=== PATIENT | female | born 1965 | race American Indian/Alaskan Native ===

== ENCOUNTER 2016-09-25 08:24 | Emergency (ER) | payer SELFPAY ==
[2016-09-25 08:49] VITALS: BP 159/73
[2016-09-25 09:06] LABS: Basophils % (Auto) 1.1 % (0.0-1.8); Eosinophils % (Auto) 1.1 % (0.0-4.3); Hemoglobin 12.8 gm/dl (10.1-14.3); Mean Corpuscular HGB Conc 34 % (30-34); Mean Corpuscular Hemoglobin 29 pg (28-32); Mean Corpuscular Volume 87 fl (79-97); Platelet Count 259 K/mm3 (140-440); Red Blood Count 4.37 M/mm3 (3.65-5.03); Red Cell Distribution Width 13.8 % (13.2-15.2); White Blood Count 8.6 K/mm3 (4.5-11.0)
--- NOTE | 2016-09-25 10:00 | XRay Report ---
ROUTINE CHEST, TWO VIEWS: SOB/chest pain PA and lateral views demonstrate the heart and mediastinal contour to be of normal size and shape. The lungs are clear and fully expanded and the soft tissues and bony structures are normal. IMPRESSION: Normal study.
[2016-09-25 10:30] LABS: Anion Gap 19 mmol/L; BUN/Creatinine Ratio 26.66; Blood Urea Nitrogen 16 mg/dL (7-17); Calcium 9.9 mg/dL (8.4-10.2); Carbon Dioxide 24 mmol/L (22-30); Chloride 103.9 mmol/L (98-107); Glucose 116 mg/dL (65-100); Potassium 4.8 mmol/L (3.6-5.0); Sodium 142 mmol/L (137-145)
== END 2016-09-25 08:48 | disposition left against medical advice (07) ==
LOC: ED 08:24
DX: R07.9 Chest pain, unspecified (principal); R51 Headache; Z53.21 Procedure and treatment not carried out due to patient leaving prior to being seen by health care provider
CPT/HCPCS: 36415; 71020; 80048; 84484; 85025; 93005; 93010

== ENCOUNTER 2017-02-09 14:36 | Emergency (ER) | payer SELFPAY ==
[2017-02-09 14:46] VITALS: BP 150/82
[2017-02-09] MEDS ORDERED: NACL 0.9% 1000 ML 1,000 ML IV ONE (17:05)
[2017-02-09] MEDS ORDERED: ZOFRAN IV ONE ×2 (17:06→18:51)
[2017-02-09] MEDS ORDERED: MORPHINE IV ONE (17:06)
--- NOTE | 2017-02-09 17:20 | Emergency Department Report ---
ED Fall HPI - General Chief Complaint: Extremity Injury, Lower Stated Complaint: FALL/ FOOR PAIN Time Seen by Provider: 02/09/17 16:56 Source: patient Mode of arrival: Ambulatory Limitations: No Limitations - History of Present Illness Initial Comments: PT states last night around 1800, she was at home and she was getting box out of trunk of car. PT states that after she removed the box, she could not see where she walking. PT states she stepped in two holes and she lost her balance and fell. PT denies cp, sob, or dizziness prior to onset of fall. PT states she laid on the ground for about 12 minutes before her neighbor came and helped her to her bed. PT states she has been laying in bed since the fall. PT states her daughter has even her Tylenol and Extra Strength Tylenol but no relief. PT states she tried crawling to the bathroom but could not due to ble pain and L shoulder pain. PT states she has been voiding in a cup while on bed. 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 denies: chest paint, shortness of breath, abdominal pain, lightheaded - Related Data Home Medications Medication Instructions Recorded Confirmed Last Taken Hydroxychloroquine [Plaquenil] 200 mg PO QDAY 02/21/14 05/18/14 01/02/16 Previous Rx's Medication Instructions Recorded Last Taken Type Ibuprofen [Motrin] 600 mg PO Q8H PRN #15 tablet 02/09/17 Unknown Rx methylPREDNISolone [Medrol] 4 mg PO DAILY #1 tab.ds.pk 02/09/17 Unknown Rx oxyCODONE /ACETAMINOPHEN [Percocet 1 tab PO Q6HR PRN #8 tablet 02/09/17 Unknown Rx 5/325] Allergies Allergy/AdvReac Type Severity Reaction Status Date / Time No Known Allergies Allergy Verified 01/10/14 20:27 ED Review of Systems ROS: Stated complaint: FALL/ FOOR PAIN Other details as noted in HPI Comment: All other systems reviewed and negative Constitutional: denies: fever Respiratory: denies: cough, shortness of breath Cardiovascular: denies: chest pain, syncope Gastrointestinal: denies: abdominal pain Musculoskeletal: as per HPI, back pain, joint swelling, arthralgia Neurological: headache, abnormal gait (due to ankle pain ) ED Past Medical Hx - Past Medical History Hx Hypertension: Yes Hx Arthritis: Yes (arms and shoulders) Additional medical history: LUPUS - Surgical History Hx Breast Surgery: Yes (abcess rt breast - surgically drained) - Social History Smoking Status: Never Smoker Substance Use Type: None - Medications Home Medications: Home Medications Medication Instructions Recorded Confirmed Last Taken Type Hydroxychloroquine [Plaquenil] 200 mg PO QDAY 02/21/14 05/18/14 01/02/16 History Ibuprofen [Motrin] 600 mg PO Q8H PRN #15 tablet 02/09/17 Unknown Rx methylPREDNISolone [Medrol] 4 mg PO DAILY #1 tab.ds.pk 02/09/17 Unknown Rx oxyCODONE /ACETAMINOPHEN [Percocet 1 tab PO Q6HR PRN #8 tablet 02/09/17 Unknown Rx 5/325] ED Physical Exam - General Limitations: Language Barrier General appearance: alert, in no apparent distress, obese - Head Head exam: Present: atraumatic, normocephalic, normal inspection - Eye Eye exam: Present: normal appearance, PERRL, EOMI. Absent: conjunctival injection, nystagmus - ENT ENT exam: Present: normal exam, mucous membranes moist, normal external ear exam - Neck Neck exam: Present: normal inspection, tenderness, other (+ midline post C- spine tenderness ) - Respiratory Respiratory exam: Present: normal lung sounds bilaterally. Absent: respiratory distress, wheezes, rales, rhonchi, chest wall tenderness, accessory muscle use, decreased breath sounds - Cardiovascular Cardiovascular Exam: Present: regular rate, normal rhythm, normal heart sounds - GI/Abdominal GI/Abdominal exam: Present: soft, normal bowel sounds. Absent: distended, tenderness, guarding, rebound - Extremities Exam Extremities exam: Present: tenderness, normal capillary refill, pedal edema (R ) . Absent: calf tenderness - Expanded Upper Extremity Exam Left General: Present: normal inspection Shoulder Exam: Present: normal inspection, tenderness. Absent: full ROM, swelling, abrasion, deformity, crepidus, dislocation, tenderness over AC joint Upper Arm exam: Present: normal inspection Elbow exam: Present: normal inspection, full ROM. Absent: tenderness Hand Wrist exam: Present: normal inspection, full ROM Right General: Present: normal inspection - Expanded Lower Extremity Exam Left Hip exam: Absent: tenderness Knee exam: Present: normal inspection. Absent: tenderness Lower Leg exam: Present: normal inspection. Absent: tenderness Ankle exam: Present: tenderness (lateral malleolus ), swelling (lateral malleoulus ). Absent: full ROM Foot/Toe exam: Present: normal inspection. Absent: tenderness, swelling, calcaneal tenderness, tenderness at base of 5th metatarsal Neuro vascular tendon exam: Present: no vascular compromise Right Hip exam: Absent: tenderness Knee exam: Present: normal inspection, full ROM. Absent: tenderness Lower Leg exam: Present: normal inspection Ankle exam: Present: tenderness, swelling (lateral malleoulos ). Absent: normal inspection, full ROM Foot/Toe exam: Present: tenderness, swelling, tenderness at base of 5th metatarsal. Absent: full ROM, deformity Neuro vascular tendon exam: Present: no vascular compromise. Absent: pulse deficit Gait: Positive: unable to bear weight - Back Exam Back exam: Present: normal inspection, full ROM, tenderness, muscle spasm, paraspinal tenderness (R lumbar ). Absent: CVA tenderness (R), CVA tenderness ( L), vertebral tenderness - Neurological Exam Neurological exam: Present: alert, oriented X3 - Expanded Neurological Exam Expanded Patient oriented to: Present: person, place, time Speech: Present: fluid speech Best Eye Response ([place]): (4) open spontaneously Best Motor Response ([place]): (6) obeys commands Best Verbal Response ([place]): (5) oriented [place] Total: 15 - Psychiatric Psychiatric exam: Present: normal affect, normal mood - Skin Skin exam: Present: warm, dry, intact ED Course Vital Signs 02/09/17 14:44 Temperature 98.3 F Pulse Rate 95 H Respiratory 16 Rate Blood Pressure 150/82 O2 Sat by Pulse 98 Oximetry - Reevaluation(s) Reevaluation #1: 02/09/17 17:31 PT aware of plan of care. 02/09/17 19:35 Dr Szymanski aware of pt, reviewed available labs and imaging studies. Reevaluation #2: 02/09/17 19:50 PT placed in R post op shoe and yoshi wrap, L arm sling, L velcro ankle splint. PT able to bear wt. PT again aware no fx seen. PT aware her pain should gradually decrease. - Pulse Oximetry Interpretation Digit-Finger Initial Pulse Oximetry Readin Actions Taken: none ED Medical Decision Making - Lab Data Result diagrams: 02/09/17 17:57 02/09/17 17:57 Lab Results 02/09/17 02/09/17 02/09/17 Range/Units 17:57 17:57 17:57 WBC 10.5 (4.5-11.0) K/mm3 RBC 4.02 (3.65-5.03) M/mm3 Hgb 12.0 (10.1-14.3) gm/dl Hct 35.4 (30.3-42.9) % MCV 88 (79-97) fl MCH 30 (28-32) pg MCHC 34 (30-34) % RDW 13.6 (13.2-15.2) % Plt Count 246 (140-440) K/mm3 Lymph % (Auto) 32.5 (13.4-35.0) % [place] % (Auto) 7.7 H (0.0-7.3) % Eos % (Auto) 1.7 (0.0-4.3) % Baso % (Auto) 0.7 (0.0-1.8) % Lymph # 3.4 (1.2-5.4) K/mm3 [place] # 0.8 (0.0-0.8) K/mm3 Eos # 0.2 (0.0-0.4) K/mm3 Baso # 0.1 (0.0-0.1) K/mm3 Seg Neutrophils % 57.4 (40.0-70.0) % Seg Neutrophils # 6.0 (1.8-7.7) K/mm3 Sodium 142 (137-145) mmol/L Potassium 4.5 (3.6-5.0) mmol/L Chloride 103.5 (98-107) mmol/L Carbon Dioxide 26 (22-30) mmol/L Anion Gap 17 mmol/L BUN 17 (7-17) mg/dL Creatinine 0.7 (0.7-1.2) mg/dL Estimated GFR > 60 ml/min BUN/Creatinine Ratio 24.28 % Glucose 103 H (65-100) mg/dL Calcium 9.2 (8.4-10.2) mg/dL Total Bilirubin 0.20 (0.1-1.2) mg/dL AST 17 (5-40) units/L ALT 19 (7-56) units/L Alkaline Phosphatase 62 (35-129) units/L Total Creatine Kinase 248 H (30-135) units/L Total Protein 6.7 (6.3-8.2) g/dL Albumin 4.3 (3.9-5) g/dL Albumin/Globulin Ratio 1.8 % Urine Color (Yellow) Urine Turbidity (Clear) Urine pH (5.0-7.0) Ur Specific [place] (1.003-1.030) Urine Protein (Negative) mg/dL Urine Glucose (UA) (Negative) mg/dL Urine Ketones (Negative) mg/dL Urine Blood (Negative) Urine Nitrite (Negative) Urine Bilirubin (Negative) Urine Urobilinogen (<2.0) mg/dL Ur Leukocyte Esterase (Negative) Urine WBC (Auto) (0.0-6.0) /HPF Urine RBC (Auto) (0.0-6.0) /HPF U Epithel Cells (Auto) (0-13.0) /HPF Urine Mucus /HPF 02/09/17 Range/Units Unknown WBC (4.5-11.0) K/mm3 RBC (3.65-5.03) M/mm3 Hgb (10.1-14.3) gm/dl Hct (30.3-42.9) % MCV (79-97) fl MCH (28-32) pg MCHC (30-34) % RDW (13.2-15.2) % Plt Count (140-440) K/mm3 Lymph % (Auto) (13.4-35.0) % [place] % (Auto) (0.0-7.3) % Eos % (Auto) (0.0-4.3) % Baso % (Auto) (0.0-1.8) % Lymph # (1.2-5.4) K/mm3 [place] # (0.0-0.8) K/mm3 Eos # (0.0-0.4) K/mm3 Baso # (0.0-0.1) K/mm3 Seg Neutrophils % (40.0-70.0) % Seg Neutrophils # (1.8-7.7) K/mm3 Sodium (137-145) mmol/L Potassium (3.6-5.0) mmol/L Chloride (98-107) mmol/L Carbon Dioxide (22-30) mmol/L Anion Gap mmol/L BUN (7-17) mg/dL Creatinine (0.7-1.2) mg/dL Estimated GFR ml/min BUN/Creatinine Ratio % Glucose (65-100) mg/dL Calcium (8.4-10.2) mg/dL Total Bilirubin (0.1-1.2) mg/dL AST (5-40) units/L ALT (7-56) units/L Alkaline Phosphatase (35-129) units/L Total Creatine Kinase (30-135) units/L Total Protein (6.3-8.2) g/dL Albumin (3.9-5) g/dL Albumin/Globulin Ratio % Urine Color Yellow (Yellow) Urine Turbidity Clear (Clear) Urine pH 5.0 (5.0-7.0) Ur Specific [place] 1.024 (1.003-1.030) Urine Protein <15 mg/dl (Negative) mg/dL Urine Glucose (UA) Neg (Negative) mg/dL Urine Ketones Neg (Negative) mg/dL Urine Blood Neg (Negative) Urine Nitrite Neg (Negative) Urine Bilirubin Neg (Negative) Urine Urobilinogen < 2.0 (<2.0) mg/dL Ur Leukocyte Esterase Tr (Negative) Urine WBC (Auto) 7.0 H (0.0-6.0) /HPF Urine RBC (Auto) 5.0 (0.0-6.0) /HPF U Epithel Cells (Auto) 13.0 (0-13.0) /HPF Urine Mucus 1+ /HPF - Radiology Data Radiology results: report reviewed CT Cervical spine - nap XR ankles - NAP XR r foot NAP XR L shoulder NAP - Differential Diagnosis fracture, contusion, strain, rhabdo Critical Care Time: No Critical care attestation.: If time is entered above; I have spent that time in minutes in the direct care of this critically ill patient, excluding procedure time. ED Disposition Clinical Impression: Right foot pain Lupus Qualifiers: Systemic lupus erythematosus type: unspecified Systemic lupus erythematosus organ involvement: unspecified Qualified Code(s): M32.9 - Systemic lupus erythematosus, unspecified Fall Qualifiers: Encounter type: initial encounter Qualified Code(s): W19.XXXA - Unspecified fall, initial encounter Left shoulder pain Qualifiers: Chronicity: acute Qualified Code(s): M25.512 - Pain in left shoulder Bilateral ankle pain Qualifiers: Chronicity: acute Qualified Code(s): M25.571 - Pain in right ankle and joints of right foot Disposition: TO HOME OR SELFCARE Is pt being admited?: No Does the pt Need Aspirin: No Condition: Stable Instructions: Ankle Sprain (ED), Fall Prevention for Older Adults (ED), Shoulder Sprain (ED), Ankle Stirrup Splint (ED), Foot Sprain (ED), Arthralgia ( ED), Fall Prevention (ED) Additional Instructions: No driving or alcohol after taking Percocet Follow up with PCP in 3-5 days Do not wear your sling longer than 1 week IF you are still having pain 7-10 days after your injury, you may need repeat images (XRs) - your PCP can order this or you can follow up with [facility]TH[facility] Prescriptions: Ibuprofen [Motrin] 600 mg PO Q8H PRN #15 tablet PRN Reason: Pain methylPREDNISolone [Medrol] 4 mg PO DAILY #1 tab.ds.pk oxyCODONE /ACETAMINOPHEN [Percocet 5/325] 1 tab PO Q6HR PRN #8 tablet PRN Reason: Pain Referrals: PRIMARY CAREMD [Primary Care Provider] - 3-5 Days ROBINSON FOLEY MD [Staff Physician] - 3-5 Days [facility] [Outside] - 3-5 Days Forms: Work/School Release Form(ED) Time of Disposition: 20:04
--- NOTE | 2017-02-09 18:07 | Cat Scan Report ---
FINAL REPORT PROCEDURE: CT cervical spine without contrast. TECHNIQUE: Computerized tomography of the cervical spine was performed from the skull base to T1 without contrast material. HISTORY: Neck pain after falling. COMPARISON: No prior studies are available for comparison. FINDINGS: The cervical vertebrae have normal height and satisfactory alignment. There are no fractures. There is no subluxation. There is mild disc space narrowing at C5-6. There are small vertebral body osteophytes at this level. The spinal canal is widely patent. The facet joints appear satisfactory. The neural foramina are widely patent. The prevertebral soft tissues have normal thickness. IMPRESSION: No evidence of acute cervical spine injury. Mild degenerative disease as described.
[2017-02-09 18:12] LABS: Basophils % (Auto) 0.7 % (0.0-1.8); Eosinophils % (Auto) 1.7 % (0.0-4.3); Hematocrit 35.4 % (30.3-42.9); Mean Corpuscular HGB Conc 34 % (30-34); Mean Corpuscular Hemoglobin 30 pg (28-32); Mean Corpuscular Volume 88 fl (79-97); Platelet Count 246 K/mm3 (140-440); Red Blood Count 4.02 M/mm3 (3.65-5.03); Red Cell Distribution Width 13.6 % (13.2-15.2); White Blood Count 10.5 K/mm3 (4.5-11.0)
--- NOTE | 2017-02-09 18:13 | XRay Report ---
FINAL REPORT PROCEDURE: Left shoulder. TECHNIQUE: Three views. HISTORY: Shoulder pain after falling. COMPARISON: No prior studies are available for comparison. FINDINGS: The bones appear intact without fracture or dislocation. The joint spaces appear normal. The soft tissues are unremarkable. IMPRESSION: Normal study.
[2017-02-09 18:31] LABS: Alanine Aminotransferase 19 units/L (7-56); Albumin 4.3 g/dL (3.9-5); Albumin/Globulin Ratio 1.8 %; Alkaline Phosphatase 62 units/L (35-129); Anion Gap 17 mmol/L; BUN/Creatinine Ratio 24.28; Blood Urea Nitrogen 17 mg/dL (7-17); Calcium 9.2 mg/dL (8.4-10.2); Carbon Dioxide 26 mmol/L (22-30); Chloride 103.5 mmol/L (98-107); Glucose 103 mg/dL (65-100); Potassium 4.5 mmol/L (3.6-5.0); Sodium 142 mmol/L (137-145); Total Protein 6.7 g/dL (6.3-8.2)
--- NOTE | 2017-02-09 18:46 | XRay Report ---
FINAL REPORT EXAM: XR FOOT 3+V RT HISTORY: pain sp fall TECHNIQUE: Four views right foot PRIORS: None. FINDINGS: No fracture or dislocation identified. Joint spaces are within normal limits. No radiopaque foreign body seen. No soft tissue abnormality identified. IMPRESSION: Negative foot series
--- NOTE | 2017-02-09 18:47 | XRay Report ---
FINAL REPORT EXAM: XR ANKLE BILAT 3+V HISTORY: pain sp fall TECHNIQUE: Bilateral ankles three views left and three views right PRIORS: None. FINDINGS: No fracture is identified. No dislocation seen. Ankle mortise is intact no evidence of joint space widening. No erosive or degenerative changes are identified. No evidence of joint effusion. IMPRESSION: Negative ankle series
[2017-02-09] MEDS ORDERED: TORADOL IV ONE (19:24)
[2017-02-09 19:51] LABS: Bilirubin,Urine NEG (Negative); Blood,Urine NEG (Negative); Ketones,Urine NEG (Negative); Leukocyte Esterase,Urine TR (Negative); Mucus,Urine 1+ /HPF; Nitrite,Urine NEG (Negative); Protein,Urine <15 mg/dL mg/dL (Negative); Urobilinogen,Urine < 2.0 mg/dL (<2.0)
[2017-02-09] MEDS ORDERED: DILAUDID IV ONE (20:01)
== END 2017-02-09 20:37 | disposition home or self-care (01) ==
LOC: ED 14:36
DX: M25.572 Pain in left ankle and joints of left foot (principal); M25.571 Pain in right ankle and joints of right foot; M32.9 Systemic lupus erythematosus, unspecified; M25.512 Pain in left shoulder; I10 Essential (primary) hypertension; M19.90 Unspecified osteoarthritis, unspecified site
CPT/HCPCS: 29515; 36415; 72125; 73030; 73610; 73630; 80053; 81001; 82550; 85025; 96361; 96372; 96374; 96375; 96376; 99285; J1170; J1885; J2270; J2405; J2930; J7030; 99284

== ENCOUNTER 2017-09-11 10:08 | Outpatient (CLI) | payer OTHER ==
--- NOTE | 2017-09-11 23:40 | XRay Report ---
FINAL REPORT PROCEDURE: Right hip. TECHNIQUE: AP pelvis, frogleg lateral view of the right hip. HISTORY: RHEUMATOID ARTHRITIS COMPARISON: No prior studies are available for comparison. FINDINGS: The pelvis appears intact. There is an IUD device in the pelvis. Both hip joints appear normal. There are no hip fractures. The soft tissues are unremarkable. IMPRESSION: Normal study.
== END 2017-09-11 10:09 | disposition home or self-care (01) ==
LOC: XRAY 10:08
PROVIDERS: ATTEND Internal Medicine
DX: M06.9 Rheumatoid arthritis, unspecified (principal); I10 Essential (primary) hypertension; Z97.5 Presence of (intrauterine) contraceptive device

== ENCOUNTER 2019-02-15 16:13 | Emergency (ER) | payer SELFPAY ==
[2019-02-15] MEDS ORDERED: ASPIRIN 325 MG TAB PO ONE (16:39)
--- NOTE | 2019-02-15 16:42 | Event Note ---
ED Screening Note Date of service: 02/15/19 Time: 16:37 ED Screening Note: This is a 53 y.o. F. that presents to the ER with generalized pain and chest pain since this morning. PMH of HTN, arthritis, and lupus This initial assessment/diagnostic orders/clinical plan/treatment(s) is/are subject to change based on patients health status, clinical progression and re- assessment by fellow clinical providers in the ED. Further treatment and workup at subsequent clinical providers discretion. Patient/guardian urged not to elope from the ED as their condition may be serious if not clinically assessed and managed. Initial orders include: Labs, CXR, and EKG
[2019-02-15 17:07] LABS: Basophils # (Auto) 0.1 K/mm3 (0.0-0.1); Basophils % (Auto) 1.6 % (0.0-1.8); Eosinophils # (Auto) 0.2 K/mm3 (0.0-0.4); Hematocrit 36.9 % (30.3-42.9); Hemoglobin 12.4 gm/dl (10.1-14.3); Lymphocytes # (Auto) 3.7 K/mm3 (1.2-5.4); Lymphocytes % (Auto) 45.4 % (13.4-35.0); Mean Corpuscular HGB Conc 34 % (30-34); Mean Corpuscular Volume 89 fl (79-97); Monocytes # (Auto) 0.4 K/mm3 (0.0-0.8); Monocytes % (Auto) 5.5 % (0.0-7.3); Platelet Count 290 K/mm3 (140-440); Red Blood Count 4.15 M/mm3 (3.65-5.03); Red Cell Distribution Width 13.5 % (13.2-15.2)
[2019-02-15 17:28] LABS: BUN/Creatinine Ratio 27; Blood Urea Nitrogen 19 mg/dL (7-17); Calcium 9.1 mg/dL (8.4-10.2); Hemolysis Index 4
--- NOTE | 2019-02-15 17:38 | XRay Report ---
CHEST 1 VIEW INDICATION: Chest Pain. COMPARISON: Chest x-ray from 09/25/2016 FINDINGS: Support devices: None. Heart: Within normal limits. Lungs/Pleura: Minimal streaky left basilar atelectasis with otherwise clear lungs. Additional findings: None. IMPRESSION: 1. No acute findings. Signer Name: Daryl Carranza MD Signed: 02/15/2019 5:34 PM Workstation Name: [id number]
[2019-02-15] MEDS ORDERED: ONDANSETRON 4 MG/2 ML INJ IV ONE (20:05)
[2019-02-15] MEDS ORDERED: SODIUM CHLORIDE 0.9% 1000 ML 1,000 ML IV ONE (20:05)
[2019-02-15] MEDS ORDERED: dexAMETHasone 20 MG/5 ML VIAL IV ONE (20:05)
[2019-02-15] MEDS ORDERED: MORPHINE 4 MG/1 ML INJ IV ONE (20:05)
--- NOTE | 2019-02-15 21:21 | Emergency Department Report ---
ED General Adult HPI - General Chief complaint: Chest Pain Stated complaint: CHEST PAIN/BACK PAIN Time Seen by Provider: 02/15/19 16:36 Source: patient Mode of arrival: Ambulatory Limitations: No Limitations - History of Present Illness Initial comments: Patient is a 53-year-old female with past history of lupus who is complaining of one day of body aches. Patient states she has some midsternal chest pain. Patient with bilateral shoulder and knee pain. Patient states pains are achy and 1010 in severity. Worse with movement better with rest. 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 Patient does have chronic back pain. Patient states she has a mild cough is nonproductive and she denies any nausea vomiting diarrhea fevers or chills. - Related Data Home Medications Medication Instructions Recorded Confirmed Last Taken Hydroxychloroquine [Plaquenil] 200 mg PO QDAY 02/21/14 05/18/14 01/02/16 Previous Rx's Medication Instructions Recorded Last Taken Type Ibuprofen [Motrin] 600 mg PO Q8H PRN #15 tablet 02/09/17 Unknown Rx methylPREDNISolone [Medrol] 4 mg PO DAILY #1 tab.ds.pk 02/09/17 Unknown Rx oxyCODONE /ACETAMINOPHEN [Percocet 1 tab PO Q6HR PRN #8 tablet 02/09/17 Unknown Rx 5/325] methOCARBAMOL [Robaxin TAB] 500 mg PO Q6H PRN #14 tablet 02/15/19 Unknown Rx predniSONE [Deltasone] 20 mg PO QDAY #5 tab 02/15/19 Unknown Rx traMADol [Ultram] 50 mg PO Q6HR PRN #12 tablet 02/15/19 Unknown Rx Allergies Allergy/AdvReac Type Severity Reaction Status Date / Time No Known Allergies Allergy Verified 01/10/14 20:27 ED Review of Systems ROS: Stated complaint: CHEST PAIN/BACK PAIN Other details as noted in HPI Comment: All other systems reviewed and negative ED Past Medical Hx - Past Medical History Previous Medical History?: Yes Hx Hypertension: Yes Hx Arthritis: Yes (arms and shoulders) Additional medical history: LUPUS - Surgical History Past Surgical History?: Yes Hx Breast Surgery: Yes (abcess rt breast - surgically drained) - Social History Smoking Status: Unknown if ever smoked Substance Use Type: None - Medications Home Medications: Home Medications Medication Instructions Recorded Confirmed Last Taken Type Hydroxychloroquine [Plaquenil] 200 mg PO QDAY 02/21/14 05/18/14 01/02/16 History Ibuprofen [Motrin] 600 mg PO Q8H PRN #15 tablet 02/09/17 Unknown Rx methylPREDNISolone [Medrol] 4 mg PO DAILY #1 tab.ds.pk 02/09/17 Unknown Rx oxyCODONE /ACETAMINOPHEN [Percocet 1 tab PO Q6HR PRN #8 tablet 02/09/17 Unknown Rx 5/325] methOCARBAMOL [Robaxin TAB] 500 mg PO Q6H PRN #14 tablet 02/15/19 Unknown Rx predniSONE [Deltasone] 20 mg PO QDAY #5 tab 02/15/19 Unknown Rx traMADol [Ultram] 50 mg PO Q6HR PRN #12 tablet 02/15/19 Unknown Rx ED Physical Exam - General Limitations: No Limitations General appearance: alert, in no apparent distress - Head Head exam: Present: atraumatic, normocephalic - Eye Eye exam: Present: normal appearance - ENT ENT exam: Present: normal orophraynx, mucous membranes moist - Neck Neck exam: Present: normal inspection - Respiratory Respiratory exam: Present: normal lung sounds bilaterally. Absent: respiratory distress, wheezes, rales, rhonchi - Cardiovascular Cardiovascular Exam: Present: regular rate, normal rhythm, normal heart sounds. Absent: systolic murmur, diastolic murmur, rubs, gallop - GI/Abdominal GI/Abdominal exam: Present: soft, normal bowel sounds. Absent: distended, tenderness, guarding, rebound, rigid - Extremities Exam Extremities exam: Present: normal inspection, full ROM, tenderness (tenderness without skin erythema or deformity of the bilateral shoulders and bilateral knees.) - Back Exam Back exam: Present: normal inspection, paraspinal tenderness - Neurological Exam Neurological exam: Present: alert, oriented X3 - Psychiatric Psychiatric exam: Present: normal affect, normal mood - Skin Skin exam: Present: warm, dry, intact, normal color. Absent: rash ED Course Vital Signs 02/15/19 16:38 Temperature 98.8 F Pulse Rate 95 H Respiratory 20 Rate Blood Pressure 127/71 O2 Sat by Pulse 98 Oximetry ED Medical Decision Making - Lab Data Result diagrams: 02/15/19 16:53 02/15/19 16:53 Lab Results 02/15/19 02/15/19 02/15/19 Range/Units 16:53 16:53 19:20 WBC 8.1 (4.5-11.0) K/mm3 RBC 4.15 (3.65-5.03) M/mm3 Hgb 12.4 (10.1-14.3) gm/dl Hct 36.9 (30.3-42.9) % MCV 89 (79-97) fl MCH 30 (28-32) pg MCHC 34 (30-34) % RDW 13.5 (13.2-15.2) % Plt Count 290 (140-440) K/mm3 Lymph % (Auto) 45.4 H (13.4-35.0) % [place] % (Auto) 5.5 (0.0-7.3) % Eos % (Auto) 2.0 (0.0-4.3) % Baso % (Auto) 1.6 (0.0-1.8) % Lymph # 3.7 (1.2-5.4) K/mm3 [place] # 0.4 (0.0-0.8) K/mm3 Eos # 0.2 (0.0-0.4) K/mm3 Baso # 0.1 (0.0-0.1) K/mm3 Seg Neutrophils % 45.5 (40.0-70.0) % Seg Neutrophils # 3.7 (1.8-7.7) K/mm3 Sodium 140 (137-145) mmol/L Potassium 4.0 (3.6-5.0) mmol/L Chloride 103.8 (98-107) mmol/L Carbon Dioxide 22 (22-30) mmol/L Anion Gap 18 mmol/L BUN 19 H (7-17) mg/dL Creatinine 0.7 (0.7-1.2) mg/dL Estimated GFR > 60 ml/min BUN/Creatinine Ratio 27 % Glucose 135 H (65-100) mg/dL Calcium 9.1 (8.4-10.2) mg/dL Troponin T < 0.010 < 0.010 (0.00-0.029) ng/mL - EKG Data -: EKG Interpreted by Ut EKG shows normal: sinus rhythm, axis, intervals, QRS complexes, ST-T waves Rate: normal - EKG Data Interpretation: normal EKG - Radiology Data [facility] [address] [place] [address] XRay Report Signed Patient: MEHREEN HALL MR#: [id number] : 1965 Acct:[id number] Age/Sex: 53 / F ADM Date: 02/15/19 Loc: ED Attending Dr: Ordering Physician: JOCELYN MOODY Date of Service: 02/15/19 Procedure(s): XR chest 1V ap Accession Number(s): [id number] cc: JOCELYN MOODY Fluoro Time In Minutes: CHEST 1 VIEW INDICATION: Chest Pain. COMPARISON: Chest x-ray from 09/25/2016 FINDINGS: Support devices: None. Heart: Within normal limits. Lungs/Pleura: Minimal streaky left basilar atelectasis with otherwise clear lungs. Additional findings: None. IMPRESSION: 1. No acute findings. Signer Name: Daryl Carranza MD Signed: 02/15/2019 5:34 PM Workstation Name: [id number] Transcribed By: JW Dictated By: Daryl Carranza MD Electronically Authenticated By: Daryl Carranza MD Signed Date/Time: 02/15/19 1734 - Medical Decision Making He is a 53-year-old female presenting with some chest discomfort as well as shoulder and knee pain. Patient likely with exacerbation of her lupus. Patient's troponin negative 2 making acute coronary syndrome unlikely. Patient has a very mild cough is nonproductive. Patient's white count was within normal limits chest x-ray is normal. Patient was hydrated given medications for symptomatic relief and the patient be discharged home with a short course of steroids. Critical care attestation.: If time is entered above; I have spent that time in minutes in the direct care of this critically ill patient, excluding procedure time. ED Disposition Clinical Impression: Lupus, Polyarthralgia, Atypical chest pain, Back spasm Disposition: - TO HOME OR SELFCARE Is pt being admited?: No Does the pt Need Aspirin: No Condition: Stable Instructions: Chest Pain (ED), Musculoskeletal Pain (ED) Referrals: XAVIER DO MD [Staff Physician] - 3-5 Days Time of Disposition: 21:22
[2019-02-15 22:28] VITALS: BP 168/74
== END 2019-02-15 22:26 | disposition home or self-care (01) ==
LOC: ED 16:13
DX: R07.89 Other chest pain (principal); R25.2 Cramp and spasm; A18.4 Tuberculosis of skin and subcutaneous tissue; M25.50 Pain in unspecified joint
CPT/HCPCS: 36415; 71045; 80048; 84484; 85025; 93005; 93010; 96374; 96375; 99284; J1100; J2270; J2405; J7030

== ENCOUNTER 2019-06-04 06:19 | Emergency (ER) | payer SELFPAY ==
[2019-06-04 07:01] LABS: Hematocrit 37.1 % (30.3-42.9); Hemoglobin 12.7 gm/dl (10.1-14.3); Mean Corpuscular HGB Conc 34 % (30-34); Mean Corpuscular Volume 87 fl (79-97); Platelet Count 230 K/mm3 (140-440); Red Blood Count 4.27 M/mm3 (3.65-5.03); Red Cell Distribution Width 13.2 % (13.2-15.2)
[2019-06-04 07:21] LABS: BUN/Creatinine Ratio 18; Blood Urea Nitrogen 11 mg/dL (7-17); Calcium 9.4 mg/dL (8.4-10.2); Hemolysis Index 46
[2019-06-04 10:38] LABS: Basophils % (Manual) 0 % (0.0-1.8); Eosinophils % (Manual) 0 % (0.0-4.3); Total Cells Counted 100
[2019-06-04 10:39] LABS: Platelet Estimate Consistent w Auto; RBC Morphology Normal
[2019-06-04] MEDS ORDERED: methylPREDNISolone Sod Succinate 125 MG/2 ML INJ IV ONE (11:04)
[2019-06-04] MEDS ORDERED: SODIUM CHLORIDE 0.9% 1000 ML 1,000 ML IV ONE (11:04)
[2019-06-04] MEDS ORDERED: MORPHINE 2 MG/1 ML INJ IV ONE (11:04)
[2019-06-04] MEDS ORDERED: KETOROLAC 30 MG/1 ML INJ IV ONE (11:04)
--- NOTE | 2019-06-04 11:09 | Emergency Department Report ---
ED General Adult HPI - General Chief complaint: Pain General Stated complaint: LUPUS PAIN COUGH CONGESTION Time Seen by Provider: 06/04/19 10:51 Source: patient Mode of arrival: Ambulatory Limitations: No Limitations - History of Present Illness Initial comments: 53-year-old female with history of hypertension, lupus, presents to ED reporting lupus flare. Patient reports URI symptoms (cough, fever) over the last 2 days which she believes may have triggered her lupus. The patient currently takes plaquenil, not currently on steroid therapy. She reported generalized body aches, joint pain. Patient denies getting a flu shot this season. -: days(s) (2) Quality: aching Consistency: constant Improves with: none Worsens with: none Associated Symptoms: cough, fever/chills. denies: nausea/vomiting, shortness of breath - Related Data Home Medications Medication Instructions Recorded Confirmed Last Taken Hydroxychloroquine [Plaquenil] 200 mg PO QDAY 02/21/14 05/18/14 01/02/16 Previous Rx's Medication Instructions Recorded Last Taken Type Ibuprofen [Motrin] 600 mg PO Q8H PRN #15 tablet 02/09/17 Unknown Rx methylPREDNISolone [Medrol] 4 mg PO DAILY #1 tab.ds.pk 02/09/17 Unknown Rx oxyCODONE /ACETAMINOPHEN [Percocet 1 tab PO Q6HR PRN #8 tablet 02/09/17 Unknown Rx 5/325] methOCARBAMOL [Robaxin TAB] 500 mg PO Q6H PRN #14 tablet 02/15/19 Unknown Rx predniSONE [Deltasone] 20 mg PO QDAY #5 tab 02/15/19 Unknown Rx traMADoL [Ultram] 50 mg PO Q6HR PRN #12 tablet 02/15/19 Unknown Rx Benzonatate [Tessalon Perles] 100 mg PO Q8HR PRN #20 capsule 06/04/19 Unknown Rx Naproxen [Naprosyn] 500 mg PO BID #20 tablet 06/04/19 Unknown Rx oxyCODONE /ACETAMINOPHEN [Percocet 1 tab PO Q6HR PRN #7 tablet 06/04/19 Unknown Rx 5/325] predniSONE [Deltasone] 50 mg PO QDAY #5 tab 06/04/19 Unknown Rx Allergies Allergy/AdvReac Type Severity Reaction Status Date / Time No Known Allergies Allergy Verified 01/10/14 20:27 ED Review of Systems ROS: Stated complaint: LUPUS PAIN COUGH CONGESTION Other details as noted in HPI Comment: All other systems reviewed and negative Constitutional: chills, fever Respiratory: cough. denies: shortness of breath Cardiovascular: denies: chest pain Gastrointestinal: denies: nausea, vomiting, diarrhea Musculoskeletal: arthralgia, myalgia ED Past Medical Hx - Past Medical History Previous Medical History?: Yes Hx Hypertension: Yes Hx Arthritis: Yes (arms and shoulders) Additional medical history: LUPUS - Surgical History Past Surgical History?: Yes Hx Breast Surgery: Yes (abcess rt breast - surgically drained) - Social History Smoking Status: Current Every Day Smoker Substance Use Type: None - Medications Home Medications: Home Medications Medication Instructions Recorded Confirmed Last Taken Type Hydroxychloroquine [Plaquenil] 200 mg PO QDAY 02/21/14 05/18/14 01/02/16 History Ibuprofen [Motrin] 600 mg PO Q8H PRN #15 tablet 02/09/17 Unknown Rx methylPREDNISolone [Medrol] 4 mg PO DAILY #1 tab.ds.pk 02/09/17 Unknown Rx oxyCODONE /ACETAMINOPHEN [Percocet 1 tab PO Q6HR PRN #8 tablet 02/09/17 Unknown Rx 5/325] methOCARBAMOL [Robaxin TAB] 500 mg PO Q6H PRN #14 tablet 02/15/19 Unknown Rx predniSONE [Deltasone] 20 mg PO QDAY #5 tab 02/15/19 Unknown Rx traMADoL [Ultram] 50 mg PO Q6HR PRN #12 tablet 02/15/19 Unknown Rx Benzonatate [Tessalon Perles] 100 mg PO Q8HR PRN #20 capsule 06/04/19 Unknown Rx Naproxen [Naprosyn] 500 mg PO BID #20 tablet 06/04/19 Unknown Rx oxyCODONE /ACETAMINOPHEN [Percocet 1 tab PO Q6HR PRN #7 tablet 06/04/19 Unknown Rx 5/325] predniSONE [Deltasone] 50 mg PO QDAY #5 tab 06/04/19 Unknown Rx ED Physical Exam - General Limitations: No Limitations General appearance: alert, in no apparent distress - Head Head exam: Present: atraumatic, normocephalic - Eye Eye exam: Present: normal appearance - ENT ENT exam: Present: mucous membranes moist - Neck Neck exam: Present: normal inspection - Respiratory Respiratory exam: Present: normal lung sounds bilaterally. Absent: respiratory distress - Cardiovascular Cardiovascular Exam: Present: regular rate, normal rhythm - GI/Abdominal GI/Abdominal exam: Present: soft. Absent: distended, tenderness - Extremities Exam Extremities exam: Present: normal inspection - Neurological Exam Neurological exam: Present: alert, oriented X3 - Psychiatric Psychiatric exam: Present: normal affect, normal mood - Skin Skin exam: Present: warm, dry, intact, normal color ED Course Vital Signs 06/04/19 06/04/19 06/04/19 11:10 11:15 11:18 Temperature 99.3 F Pulse Rate 75 90 Respiratory 15 15 16 Rate Blood Pressure 124/72 Blood Pressure 124/72 [Left] O2 Sat by Pulse 96 95 95 Oximetry 06/04/19 06/04/19 06/04/19 11:30 11:41 11:45 Temperature Pulse Rate 81 90 Respiratory 14 18 24 Rate Blood Pressure 124/91 124/91 Blood Pressure [Left] O2 Sat by Pulse 94 99 Oximetry 06/04/19 06/04/19 06/04/19 11:48 12:00 12:11 Temperature Pulse Rate 75 Respiratory 18 20 18 Rate Blood Pressure 141/76 Blood Pressure [Left] O2 Sat by Pulse 91 Oximetry 06/04/19 06/04/19 06/04/19 12:15 12:30 12:45 Temperature Pulse Rate 101 H 76 72 Respiratory 10 L 16 18 Rate Blood Pressure 141/76 125/71 140/70 Blood Pressure [Left] O2 Sat by Pulse 90 92 93 Oximetry 06/04/19 06/04/19 06/04/19 13:00 13:15 13:31 Temperature Pulse Rate 79 82 72 Respiratory 18 13 12 Rate Blood Pressure 149/71 146/80 117/55 Blood Pressure [Left] O2 Sat by Pulse 94 94 89 Oximetry 06/04/19 13:42 Temperature Pulse Rate Respiratory 18 Rate Blood Pressure Blood Pressure [Left] O2 Sat by Pulse 99 Oximetry ED Medical Decision Making - Lab Data Result diagrams: 06/04/19 06:46 06/04/19 06:46 - Radiology Data Radiology results: report reviewed, image reviewed - Medical Decision Making Labs unremarkable. CXR normal. Pt feeling much better following IV fluids, toradol, and dilaudid. Will d/c at this time. Outpt f/u advised. Return precautions given. - Differential Diagnosis lupus exacerbation, pneumonia, URI Critical care attestation.: If time is entered above; I have spent that time in minutes in the direct care of this critically ill patient, excluding procedure time. ED Disposition Clinical Impression: URI (upper respiratory infection), Lupus, Generalized muscle ache Disposition: TO HOME OR SELFCARE Is pt being admited?: No Condition: Stable Instructions: Upper Respiratory Infection (ED) Prescriptions: predniSONE [Deltasone] 50 mg PO QDAY #5 tab Naproxen [Naprosyn] 500 mg PO BID #20 tablet oxyCODONE /ACETAMINOPHEN [Percocet 5/325] 1 tab PO Q6HR PRN #7 tablet PRN Reason: Pain Benzonatate [Tessalon Perles] 100 mg PO Q8HR PRN #20 capsule PRN Reason: Cough Referrals: PRIMARY CARE,MD [Primary Care Provider] - 3-5 Days Forms: Work/School Release Form(ED) Time of Disposition: 13:02
--- NOTE | 2019-06-04 11:58 | XRay Report ---
CHEST 1 VIEW INDICATION: cough. COMPARISON: 02/15/2019 FINDINGS: Support devices: None. Heart: Within normal limits. Lungs/Pleura: No acute air space or interstitial disease. Additional findings: None. IMPRESSION: No acute findings. Signer Name: Luis Meyer Jr, MD Signed: 06/04/2019 11:54 AM Workstation Name: [id number]
[2019-06-04] MEDS ORDERED: HYDROmorphone 1 MG/1 ML INJ IV ONE (12:49)
[2019-06-04 13:42] VITALS: BP 117/55
== END 2019-06-04 14:02 | disposition home or self-care (01) ==
LOC: ED 06:19
DX: J06.9 Acute upper respiratory infection, unspecified (principal); M32.9 Systemic lupus erythematosus, unspecified; I10 Essential (primary) hypertension; M19.90 Unspecified osteoarthritis, unspecified site; F17.200 Nicotine dependence, unspecified, uncomplicated; Z79.899 Other long term (current) drug therapy
CPT/HCPCS: 36415; 71045; 80048; 85007; 85025; 96374; 96375; 99284; J1170; J1885; J2270; J2930; J7030

== ENCOUNTER 2020-10-09 08:30 | Emergency (ER) | payer SELFPAY ==
[2020-10-09] MEDS ORDERED: KETOROLAC 30 MG/1 ML INJ IV ONE (09:43)
[2020-10-09] MEDS ORDERED: SODIUM CHLORIDE 0.9% 1000 ML 1,000 ML IV ONE (09:43)
--- NOTE | 2020-10-09 09:46 | Emergency Department Report ---
HPI - General Chief Complaint: Upper Respiratory Infection PUI?: Yes Time Seen by Provider: 10/09/20 09:24 - HPI HPI: Room 18 The patient is a 55-year-old female present with a chief complaint of cough and muscle spasms. The patient states she has had a "cold" for approximate 2 weeks. Patient missed her cough has been productive of yellow sputum, subjective fever and rhinorrhea. Patient also complains of muscle spasms in her back and left ribs. The patient states she has been in contact with Covid positive coworkers. Patient states she has not received a Covid vaccinations. ED Past Medical Hx - Past Medical History Hx Hypertension: Yes Hx Arthritis: Yes (arms and shoulders) Additional medical history: LUPUS - Surgical History Past Surgical History?: No Hx Breast Surgery: Yes (abcess rt breast - surgically drained) - Family History Family history: no significant - Social History Smoking Status: Current Every Day Smoker (1/10 pack/day) Substance Use Type: None (Denies illicit drug use), Alcohol (Occasional) - Medications Home Medications: Home Medications Medication Instructions Recorded Confirmed Last Taken Type Hydroxychloroquine [Plaquenil] 200 mg PO QDAY 02/21/14 05/18/14 01/02/16 History Ibuprofen [Motrin] 600 mg PO Q8H PRN #15 tablet 02/09/17 Unknown Rx methylPREDNISolone [Medrol] 4 mg PO DAILY #1 tab.ds.pk 02/09/17 Unknown Rx oxyCODONE /ACETAMINOPHEN [Percocet 1 tab PO Q6HR PRN #8 tablet 02/09/17 Unknown Rx 5/325] methOCARBAMOL [Robaxin TAB] 500 mg PO Q6H PRN #14 tablet 02/15/19 Unknown Rx predniSONE [Deltasone] 20 mg PO QDAY #5 tab 02/15/19 Unknown Rx traMADoL [Ultram] 50 mg PO Q6HR PRN #12 tablet 02/15/19 Unknown Rx Benzonatate [Tessalon Perles] 100 mg PO Q8HR PRN #20 capsule 06/04/19 Unknown Rx Naproxen [Naprosyn] 500 mg PO BID #20 tablet 06/04/19 Unknown Rx oxyCODONE /ACETAMINOPHEN [Percocet 1 tab PO Q6HR PRN #7 tablet 06/04/19 Unknown Rx 5/325] predniSONE [Deltasone] 50 mg PO QDAY #5 tab 06/04/19 Unknown Rx Albuterol Mdi (or & Nicu Only) 2 puff IH QID PRN #8.5 gram 10/09/20 Unknown Rx [ProAir HFA Inhaler] Benzonatate [Tessalon Perles] 100 mg PO Q8HR #30 capsule 10/09/20 Unknown Rx Ciprofloxacin HCl 500 mg PO BID #20 tablet 10/09/20 Unknown Rx Cyclobenzaprine [Flexeril] 10 mg PO TID PRN #14 tablet 10/09/20 Unknown Rx HYDROcodone/APAP 5-325 [[place] 1 - 2 each PO Q6HR PRN #14 tablet 10/09/20 Unknown Rx 5/325] ED Review of Systems ROS: Stated complaint: CHEST/BACK PAIN Other details as noted in HPI Constitutional: fever (Subjective) Eyes: denies: eye pain ENT: other (Rhinorrhea) Respiratory: cough Endocrine: no symptoms reported Gastrointestinal: denies: abdominal pain Genitourinary: denies: dysuria Musculoskeletal: back pain, myalgia Neurological: denies: headache Physical Exam - Physical Exam Vital Signs: Vital Signs 10/09/20 10/09/20 10/09/20 08:35 09:26 09:34 Temperature 99.7 F H Pulse Rate 93 H 115 H Respiratory 22 15 17 Rate Blood Pressure 172/93 Blood Pressure 186/86 [Right] O2 Sat by Pulse 95 97 97 Oximetry Physical Exam: GENERAL: The patient is well-developed well-nourished female lying on stretcher appearing tearful. [] HEENT: Normocephalic. Atraumatic. Extraocular motions are intact. Patient has moist mucous membranes. NECK: Supple. Trachea midline CHEST/LUNGS: Rhonchi with occasional faint wheezing. There is no respiratory distress noted. HEART/CARDIOVASCULAR: Regular. There is tachycardia. There is no gallop rub or murmur. ABDOMEN: Abdomen is soft, nontender. Patient has normal bowel sounds. There is no abdominal distention. SKIN: There is no rash. There is no edema. There is no diaphoresis. NEURO: The patient is awake, alert, and oriented. The patient is cooperative. The patient has no focal neurologic deficits. The patient has normal speech MUSCULOSKELETAL: There is no evidence of acute injury. ED Course Vital Signs 10/09/20 10/09/20 10/09/20 08:35 09:26 09:34 Temperature 99.7 F H Pulse Rate 93 H 115 H Respiratory 22 15 17 Rate Blood Pressure 172/93 Blood Pressure 186/86 [Right] O2 Sat by Pulse 95 97 97 Oximetry ED Medical Decision Making - Lab Data Result diagrams: 10/09/20 10:14 10/09/20 10:14 Laboratory Tests 10/09/20 10/09/20 10/09/20 10:14 10:14 10:14 WBC 8.4 RBC 4.54 Hgb 13.3 Hct 40.0 MCV 88 MCH 29 MCHC 33 RDW 13.4 Plt Count 279 Lymph % (Auto) 39.1 H [place] % (Auto) 5.6 Eos % (Auto) 2.8 Baso % (Auto) 1.5 Lymph # (Auto) 3.3 [place] # (Auto) 0.5 Eos # (Auto) 0.2 Baso # (Auto) 0.1 Seg Neutrophils % 51.0 Seg Neutrophils # 4.3 PT 12.8 INR 0.98 APTT 27.9 Sodium 137 Potassium 4.2 Chloride 100.3 Carbon Dioxide 23 Anion Gap 18 BUN 11 Creatinine 0.4 L Estimated GFR > 60 BUN/Creatinine Ratio 28 Glucose 177 H Calcium 9.6 Total Creatine Kinase 120 CK-MB (CK-2) 1.5 CK-MB (CK-2) Rel Index 1.2 Troponin T < 0.010 NT-Pro-B Natriuret Pep 9.66 - EKG Data -: EKG Interpreted by Me EKG shows normal: sinus rhythm Rate: normal - EKG Data When compared to previous EKG there are: previous EKG unavailable Interpretation: nonspecific ST-T wave harpreet (T wave inversion in lead aVL, V2) - Radiology Data Radiology results: report reviewed (Chest x-ray), image reviewed (Chest x-ray) interpreted by me: Chest x-ray-right lower lobe atelectasis. No pneumothorax. No definite infiltrate [facility] [address] [place] [address] XRay Report Signed Patient: MEHREEN HALL MR#: [id number] : 1965 Acct:[id number] Age/Sex: 55 / F ADM Date: 10/09/20 Loc: ED Attending Dr: Ordering Physician: MONISHA ESPAÑA MD Date of Service: 10/09/20 Procedure(s): XR chest 1V ap Accession Number(s): [id number] cc: MONISHA ESPAÑA MD Fluoro Time In Minutes: CHEST 1 VIEW INDICATION: Shortness of breath, cough COMPARISON: FINDINGS: SUPPORT DEVICES: None. HEART / MEDIASTINUM: No significant abnormality. LUNGS / PLEURA: No significant pulmonary or pleural abnormality. No pneumothorax. ADDITIONAL FINDINGS: IMPRESSION: 1. No acute cardiopulmonary disease Signer Name: Julio Nichole MD Signed: 10/09/2020 10:04 AM Workstation Name: [id number] Transcribed By: WG Dictated By: Julio Nichole MD Electronically Authenticated By: Julio Nichole MD Signed Date/Time: 10/09/201003 DD/ 03 TD/TT: Print - Medical Decision Making 2-minute walking SPO2 97% room air - Differential Diagnosis Pneumonia, Covid, bronchitis, Critical care attestation.: If time is entered above; I have spent that time in minutes in the direct care of this critically ill patient, excluding procedure time. ED Disposition Clinical Impression: Acute bronchitis, Suspected COVID-19 virus infection Disposition: - TO HOME OR SELFCARE Is pt being admited?: No Does the pt Need Aspirin: No Condition: Stable Instructions: Acute Bronchitis (ED), Acute Bronchitis, Adult, [id number] Additional Instructions: Return to the emergency department should you develop worsening symptoms, inability to tolerate food or liquids, high fever or any other concerns Prescriptions: Ciprofloxacin HCl 500 mg PO BID #20 tablet Cyclobenzaprine [Flexeril] 10 mg PO TID PRN #14 tablet PRN Reason: Muscle Spasm HYDROcodone/APAP 5-325 [[place] 5/325] 1 - 2 each PO Q6HR PRN #14 tablet PRN Reason: Pain Albuterol Mdi (or & Nicu Only) [ProAir HFA Inhaler] 2 puff IH QID PRN #8.5 gram PRN Reason: Shortness Of Breath Benzonatate [Tessalon Perles] 100 mg PO Q8HR #30 capsule Referrals: PRIMARY CARE, [Primary Care Provider] - 3-5 Days [facility] [Provider Group] - 3-5 Days Time of Disposition: 11:57
[2020-10-09] MEDS ORDERED: ALBUTEROL 2.5 MG/3 ML NEBU IH ONE (09:58)
[2020-10-09] MEDS ORDERED: IPRATROPIUM 0.02% NEBU 2.5 ML IH ONE (09:58)
--- NOTE | 2020-10-09 10:08 | XRay Report ---
CHEST 1 VIEW INDICATION: Shortness of breath, cough COMPARISON: FINDINGS: SUPPORT DEVICES: None. HEART / MEDIASTINUM: No significant abnormality. LUNGS / PLEURA: No significant pulmonary or pleural abnormality. No pneumothorax. ADDITIONAL FINDINGS: IMPRESSION: 1. No acute cardiopulmonary disease Signer Name: Julio Nichole MD Signed: 10/09/2020 10:04 AM Workstation Name: [id number]
[2020-10-09 10:30] LABS: Basophils # (Auto) 0.1 K/mm3 (0.0-0.1); Basophils % (Auto) 1.5 % (0.0-1.8); Eosinophils # (Auto) 0.2 K/mm3 (0.0-0.4); Eosinophils % (Auto) 2.8 % (0.0-4.3); Hemoglobin 13.3 gm/dl (10.1-14.3); Lymphocytes # (Auto) 3.3 K/mm3 (1.2-5.4); Lymphocytes % (Auto) 39.1 % (13.4-35.0); Mean Corpuscular HGB Conc 33 % (30-34); Mean Corpuscular Volume 88 fl (79-97); Monocytes # (Auto) 0.5 K/mm3 (0.0-0.8); Monocytes % (Auto) 5.6 % (0.0-7.3); Platelet Count 279 K/mm3 (140-440); Red Blood Count 4.54 M/mm3 (3.65-5.03); Red Cell Distribution Width 13.4 % (13.2-15.2)
[2020-10-09 10:57] LABS: INR 0.98 (0.87-1.13)
[2020-10-09 10:58] LABS: Partial Thromboplastin Time 27.9 Sec. (24.2-36.6)
[2020-10-09 11:21] LABS: Creatine Kinase MB 1.5 ng/mL (0.0-4.0)
[2020-10-09 11:22] LABS: Blood Urea Nitrogen 11 mg/dL (7-17); Calcium 9.6 mg/dL (8.4-10.2); Hemolysis Index 0
[2020-10-09 11:25] LABS: BUN/Creatinine Ratio 28
[2020-10-09 11:32] VITALS: BP 141/85
--- NOTE | 2020-10-10 10:37 | Electrocardiograph Report ---
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
== END 2020-10-09 12:12 | disposition home or self-care (01) ==
LOC: ED 08:30
DX: J20.9 Acute bronchitis, unspecified (principal); Z20.822 Contact with and (suspected) exposure to COVID-19; I10 Essential (primary) hypertension; F17.210 Nicotine dependence, cigarettes, uncomplicated; R79.1 Abnormal coagulation profile; M19.90 Unspecified osteoarthritis, unspecified site; Z98.890 Other specified postprocedural states; Z79.899 Other long term (current) drug therapy
CPT/HCPCS: 36415; 71045; 80048; 82550; 82553; 83880; 84484; 85025; 85610; 85730; 87040; 93005; 96361; 96374; 99284; J1885; J7030

== ENCOUNTER 2021-06-20 08:42 | Emergency (ER) | payer SELFPAY ==
[2021-06-20] MEDS ORDERED: ALBUTEROL 2.5 MG/3 ML NEBU IH ONE (09:37)
--- NOTE | 2021-06-20 09:37 | Emergency Department Report ---
ED Shortness of Breath HPI - General Chief Complaint: Dyspnea/Respdistress Stated Complaint: BODY PAIN/DIFFICULTY BREATHING Time Seen by Provider: 06/20/21 09:34 Source: patient Mode of arrival: Ambulatory Limitations: No Limitations - History of Present Illness Initial Comments: 55 yo comes to ER concerned that she has covid. She co sob. She endorses e xposure. No covid immunization because she "is afraid." On triage she is non ill non toxic appearing. She looks much older than stated age. She did not see her pcp. Endorses hx of SLE MD Complaint: shortness of breath -: Gradual, days(s) Consistency: intermittent Improves With: nothing Associated Symptoms: denies other symptoms Treatments Prior to Arrival: none - Related Data Home Oxygen Therapy: No Home Medications Medication Instructions Recorded Confirmed Last Taken Hydroxychloroquine [Plaquenil] 200 mg PO QDAY 02/21/14 05/18/14 01/02/16 Allergies Allergy/AdvReac Type Severity Reaction Status Date / Time No Known Allergies Allergy Verified 10/09/20 08:33 ED Review of Systems ROS: Stated complaint: BODY PAIN/DIFFICULTY BREATHING Other details as noted in HPI Comment: All other systems reviewed and negative ED Past Medical Hx - Past Medical History Hx Hypertension: Yes Hx CVA: No Hx Heart Attack/AMI: No Hx Congestive Heart Failure: No Hx Diabetes: No Hx Deep Vein Thrombosis: No Hx Pulmonary Embolism: No Hx GERD: No Hx Liver Disease: No Hx Renal Disease: No Hx of Cancer: No Hx Sickle Cell Disease: No Hx Arthritis: Yes (arms and shoulders) Hx Headaches / Migraines: No Hx Seizures: No Hx Kidney Stones: No Hx Psychiatric Treatment: No Hx Asthma: No Hx COPD: No Hx Tuberculosis: No Hx Dementia: No Hx HIV: No Additional medical history: LUPUS - Surgical History Past Surgical History?: Yes Hx Breast Surgery: Yes (abcess rt breast - surgically drained) - Family History Family history: no significant - Social History Smoking Status: Current Every Day Smoker (1/10 pack/day) Substance Use Type: Alcohol (Occasional) - Medications Home Medications: Home Medications Medication Instructions Recorded Confirmed Last Taken Type Hydroxychloroquine [Plaquenil] 200 mg PO QDAY 02/21/14 05/18/14 01/02/16 History ED Physical Exam - General Limitations: No Limitations General appearance: alert, in no apparent distress - Head Head exam: Present: atraumatic, normocephalic - Eye Eye exam: Present: normal appearance - ENT ENT exam: Present: mucous membranes moist - Neck Neck exam: Present: normal inspection - Respiratory Respiratory exam: Present: normal lung sounds bilaterally. Absent: respiratory distress - Cardiovascular Cardiovascular Exam: Present: regular rate, normal rhythm. Absent: systolic murmur, diastolic murmur, rubs, gallop - GI/Abdominal GI/Abdominal exam: Present: soft, normal bowel sounds - Extremities Exam Extremities exam: Present: normal inspection - Back Exam Back exam: Present: normal inspection - Neurological Exam Neurological exam: Present: alert, oriented X3 - Psychiatric Psychiatric exam: Present: normal affect, normal mood - Skin Skin exam: Present: warm, dry, intact, normal color. Absent: rash ED Course Vital Signs 06/20/21 06/20/21 09:29 10:55 Temperature 98.7 F Pulse Rate 82 89 Respiratory 20 20 Rate Blood Pressure 138/89 130/68 [Right] O2 Sat by Pulse 97 97 Oximetry ED Medical Decision Making - Lab Data Result diagrams: 06/20/21 09:39 06/20/21 09:39 - EKG Data EKG shows normal: sinus rhythm Rate: normal - EKG Data When compared to previous EKG there are: no significant change Interpretation: no acute changes - Radiology Data Radiology results: report reviewed, image reviewed - Medical Decision Making Lab Results 06/20/21 06/20/21 06/20/21 Range/Units 09:39 09:39 09:39 WBC 10.7 (4.5-11.0) K/mm3 RBC 4.36 (3.65-5.03) M/mm3 Hgb 12.6 (10.1-14.3) gm/dl Hct 37.9 (30.3-42.9) % MCV 87 (79-97) fl MCH 29 (28-32) pg MCHC 33 (30-34) % RDW 13.5 (13.2-15.2) % Plt Count 296 (140-440) K/mm3 Lymph % (Auto) 24.1 (13.4-35.0) % [place] % (Auto) 11.9 H (0.0-7.3) % Eos % (Auto) 1.0 (0.0-4.3) % Baso % (Auto) 0.6 (0.0-1.8) % Lymph # (Auto) 2.6 (1.2-5.4) K/mm3 [place] # (Auto) 1.3 H (0.0-0.8) K/mm3 Eos # (Auto) 0.1 (0.0-0.4) K/mm3 Baso # (Auto) 0.1 (0.0-0.1) K/mm3 Seg Neutrophils % 62.4 (40.0-70.0) % Seg Neutrophils # 6.7 (1.8-7.7) K/mm3 Sodium 138 (137-145) mmol/L Potassium 3.8 (3.6-5.0) mmol/L Chloride 101.9 (98-107) mmol/L Carbon Dioxide 21 L (22-30) mmol/L Anion Gap 19 mmol/L BUN 8 (7-17) mg/dL Glucose 166 H (65-100) mg/dL Lactic Acid 0.80 (0.7-2.0) mmol/L Calcium 9.9 (8.4-10.2) mg/dL Total Bilirubin 0.30 (0.1-1.2) mg/dL AST 19 (5-40) units/L ALT 29 (7-56) units/L Alkaline Phosphatase 119 (35-129) units/L Troponin T < 0.010 (0.00-0.029) ng/mL Total Protein 7.9 (6.3-8.2) g/dL Albumin 4.2 (3.9-5) g/dL Albumin/Globulin Ratio 1.1 % Vital Signs 06/20/21 09:29 Temperature 98.7 F Pulse Rate 82 Respiratory 20 Rate Blood Pressure 138/89 [Right] O2 Sat by Pulse 97 Oximetry walk test with no hypoxia pt educated on covid testing pt educated on covid care and management - she has xray that is unremarkable and normal VS pt is ambulatory non ill non toxic and afebrile. No hypoxia and taking po we've discussed isolation, diet, activity, meds, follow up and testing for covid. She verbalizes understanding. She does not understand why she is not being given antibiotics. - Differential Diagnosis covid/uri Critical care attestation.: If time is entered above; I have spent that time in minutes in the direct care of this critically ill patient, excluding procedure time. ED Disposition Clinical Impression: Person under investigation for COVID-19 Disposition: 01 HOME / SELF CARE / HOMELESS Is pt being admited?: No Does the pt Need Aspirin: No Condition: Stable Additional Instructions: NO EVIDENCE COVID ON XRAY BUT THIS DOES NOT MEAN YOU DONT HAVE IT RAPID TEST / PCR AT PCP OR TESTING CENTER WOULD TELL YOU FOR SURE SELF ISOLATION FOR 10 DAYS REST STAY WELL HYDRATED MOTRIN OR TYLENOL FOR PAIN OR FEVER DIET AND ACTIVITY TOLERATED FOLLOW UP WITH PCP IN 48 HOURS FOR RECHECK LOCAL REFERRAL BELOW Referrals: ASHELY BERMUDEZ MD [Staff Physician] - 3-5 Days Forms: Work/School Release Form(ED) Time of Disposition: 09:36
[2021-06-20 09:57] LABS: Basophils # (Auto) 0.1 K/mm3 (0.0-0.1); Basophils % (Auto) 0.6 % (0.0-1.8); Eosinophils # (Auto) 0.1 K/mm3 (0.0-0.4); Hematocrit 37.9 % (30.3-42.9); Hemoglobin 12.6 gm/dl (10.1-14.3); Lymphocytes # (Auto) 2.6 K/mm3 (1.2-5.4); Lymphocytes % (Auto) 24.1 % (13.4-35.0); Mean Corpuscular HGB Conc 33 % (30-34); Mean Corpuscular Volume 87 fl (79-97); Monocytes # (Auto) 1.3 K/mm3 (0.0-0.8); Monocytes % (Auto) 11.9 % (0.0-7.3); Platelet Count 296 K/mm3 (140-440); Red Blood Count 4.36 M/mm3 (3.65-5.03); Red Cell Distribution Width 13.5 % (13.2-15.2)
--- NOTE | 2021-06-20 10:08 | XRay Report ---
CHEST 2 VIEWS INDICATION / CLINICAL INFORMATION: Dyspnea. COMPARISON: One view of the chest from 10/09/2020 FINDINGS: SUPPORT DEVICES: None. HEART / MEDIASTINUM: No significant abnormality. LUNGS / PLEURA: There is probable bibasilar atelectasis. The lungs are otherwise clear. No significan t pleural effusion. No pneumothorax. ADDITIONAL FINDINGS: No significant additional findings. IMPRESSION: Probable bibasilar atelectasis without other acute findings. Signer Name: Wolfgang Draper MD Signed: 06/20/2021 10:03 AM Workstation Name: [id number]
[2021-06-20 10:22] LABS: Alanine Aminotransferase 29 units/L (7-56); Albumin 4.2 g/dL (3.9-5); Blood Urea Nitrogen 8 mg/dL (7-17); Calcium 9.9 mg/dL (8.4-10.2); Hemolysis Index 0
[2021-06-20] MEDS ORDERED: IBUPROFEN 800 MG TAB PO ONE (10:28)
[2021-06-20 10:31] LABS: BUN/Creatinine Ratio 16
[2021-06-20 11:03] VITALS: BP 130/68
== END 2021-06-20 11:03 | disposition home or self-care (01) ==
LOC: ED 08:42
DX: R06.02 Shortness of breath (principal); I10 Essential (primary) hypertension; M19.90 Unspecified osteoarthritis, unspecified site; F17.200 Nicotine dependence, unspecified, uncomplicated; Z20.822 Contact with and (suspected) exposure to COVID-19; Z79.899 Other long term (current) drug therapy; Z98.890 Other specified postprocedural states
CPT/HCPCS: 36415; 71046; 80053; 82140; 83880; 84484; 85025; 99283

== ENCOUNTER 2021-11-08 10:29 | Emergency (ER) | payer SELFPAY ==
[2021-11-08 11:31] VITALS: BP 149/83
== END 2021-11-08 11:25 | disposition left against medical advice (07) ==
LOC: ED 10:29
DX: M54.9 Dorsalgia, unspecified (principal); Z53.21 Procedure and treatment not carried out due to patient leaving prior to being seen by health care provider

== ENCOUNTER 2021-12-14 09:11 | Emergency (ER) | payer SELFPAY ==
[2021-12-14] MEDS ORDERED: MORPHINE 4 MG/1 ML INJ IV ONE (09:47)
[2021-12-14] MEDS ORDERED: dexAMETHasone 20 MG/5 ML VIAL IV ONE (09:47)
--- NOTE | 2021-12-14 09:51 | Emergency Department Report ---
ED General Adult HPI - General Chief complaint: Pain General Stated complaint: LUPUS FLARE UP Time Seen by Provider: 12/14/21 09:44 Source: EMS Mode of arrival: Stretcher Limitations: Physical Limitation - History of Present Illness Initial comments: Patient is a 56-year-old female with history of lupus presenting via EMS with complaint of diffuse body pain secondary to a lupus flare for the past 2 days. States he has been taking [id number] pain medications which have provided no relief. She denies fever or chills. No shortness of breath or chest pain. Severity scale (0 -10): 8 - Related Data Home Medications Medication Instructions Recorded Confirmed Last Taken Hydroxychloroquine [Plaquenil] 200 mg PO QDAY 02/21/14 05/18/14 01/02/16 Allergies Allergy/AdvReac Type Severity Reaction Status Date / Time No Known Allergies Allergy Verified 12/14/21 09:40 ED Review of Systems ROS: Stated complaint: LUPUS FLARE UP Other details as noted in HPI Constitutional: denies: chills, fever Respiratory: no symptoms reported Cardiovascular: denies: chest pain, palpitations Endocrine: no symptoms reported Gastrointestinal: denies: abdominal pain, nausea, diarrhea Genitourinary: denies: urgency, dysuria, discharge Musculoskeletal: joint swelling, arthralgia, myalgia Skin: denies: rash, lesions Neurological: denies: headache, weakness, paresthesias Psychiatric: denies: anxiety, depression Hematological/Lymphatic: denies: easy bleeding, easy bruising ED Past Medical Hx - Past Medical History Hx Hypertension: Yes Hx CVA: No Hx Heart Attack/AMI: No Hx Congestive Heart Failure: No Hx Diabetes: No Hx Deep Vein Thrombosis: No Hx Pulmonary Embolism: No Hx GERD: No Hx Liver Disease: No Hx Renal Disease: No Hx Sickle Cell Disease: No Hx Arthritis: Yes (arms and shoulders) Hx Headaches / Migraines: No Hx Seizures: No Hx Kidney Stones: No Hx Psychiatric Treatment: No Hx Asthma: No Hx COPD: No Hx Tuberculosis: No Hx Dementia: No Hx HIV: No Additional medical history: LUPUS - Surgical History Hx Breast Surgery: Yes (abcess rt breast - surgically drained) - Social History Smoking Status: Current Every Day Smoker (1/10 pack/day) Substance Use Type: Alcohol (Occasional) - Medications Home Medications: Home Medications Medication Instructions Recorded Confirmed Last Taken Type Hydroxychloroquine [Plaquenil] 200 mg PO QDAY 02/21/14 05/18/14 01/02/16 History ED Physical Exam - General Limitations: Physical Limitation General appearance: alert, other (Tearful, appears uncomfortable) - Head Head exam: Present: atraumatic, normocephalic - Neck Neck exam: Present: normal inspection - Respiratory Respiratory exam: Present: normal lung sounds bilaterally. Absent: respiratory distress - Cardiovascular Cardiovascular Exam: Present: regular rate, normal rhythm, normal heart sounds - GI/Abdominal GI/Abdominal exam: Present: soft. Absent: distended, tenderness - Rectal Rectal exam: Present: deferred - Neurological Exam Neurological exam: Present: alert, oriented X3 - Psychiatric Psychiatric exam: Present: normal affect, normal mood - Skin Skin exam: Present: warm, dry, intact, normal color ED Course Vital Signs 12/14/21 12/14/21 12/14/21 09:37 09:49 10:01 Temperature 98.7 F Pulse Rate 100 H 86 74 Respiratory 16 20 Rate Blood Pressure 162/78 Blood Pressure 156/68 [Left] O2 Sat by Pulse 96 99 Oximetry 12/14/21 11:01 Temperature Pulse Rate 71 Respiratory 14 Rate Blood Pressure 175/76 Blood Pressure [Left] O2 Sat by Pulse 96 Oximetry ED Medical Decision Making - Lab Data Result diagrams: 12/14/21 09:58 12/14/21 09:58 - Medical Decision Making Patient given IV morphine followed by IV Dilaudid and Decadron with significant improvement of her symptoms. On reassessment she is resting comfortably in bed. Basic labs are unremarkable. She is stable for discharge. Critical care attestation.: If time is entered above; I have spent that time in minutes in the direct care of this critically ill patient, excluding procedure time. ED Disposition Clinical Impression: Musculoskeletal pain, Lupus (systemic lupus erythematosus) Disposition: HOME / SELF CARE / HOMELESS Is pt being admited?: No Condition: Stable Instructions: Musculoskeletal Pain Additional Instructions: Please follow-up with your regular doctor as needed. You may return if your symptoms worsen. Time of Disposition: 12:10
[2021-12-14 11:05] LABS: Basophils # (Auto) 0.1 K/mm3 (0.0-0.1); Basophils % (Auto) 1.2 % (0.0-1.8); Eosinophils # (Auto) 0.1 K/mm3 (0.0-0.4); Eosinophils % (Auto) 0.8 % (0.0-4.3); Hematocrit 36.5 % (30.3-42.9); Hemoglobin 12.3 gm/dl (10.1-14.3); Lymphocytes # (Auto) 3.5 K/mm3 (1.2-5.4); Mean Corpuscular HGB Conc 34 % (30-34); Mean Corpuscular Volume 89 fl (79-97); Monocytes # (Auto) 0.4 K/mm3 (0.0-0.8); Monocytes % (Auto) 5.1 % (0.0-7.3); Platelet Count 254 K/mm3 (140-440); Red Blood Count 4.12 M/mm3 (3.65-5.03); Red Cell Distribution Width 13.7 % (13.2-15.2)
[2021-12-14] MEDS ORDERED: HYDROmorphone 1 MG/1 ML INJ IV ONE (11:06)
[2021-12-14 11:18] LABS: Alanine Aminotransferase 14 units/L (7-56); Albumin 4.3 g/dL (3.9-5); Blood Urea Nitrogen 13 mg/dL (7-17); Calcium 9.4 mg/dL (8.4-10.2); Hemolysis Index 3
[2021-12-14 11:29] LABS: BUN/Creatinine Ratio 33; Bilirubin,Direct < 0.2 mg/dL (0-0.2)
[2021-12-14 13:04] VITALS: BP 147/54
== END 2021-12-14 13:04 | disposition home or self-care (01) ==
LOC: ED 09:11
DX: M32.9 Systemic lupus erythematosus, unspecified (principal); M79.18 Myalgia, other site; I10 Essential (primary) hypertension; M19.90 Unspecified osteoarthritis, unspecified site; Z98.890 Other specified postprocedural states; F17.200 Nicotine dependence, unspecified, uncomplicated
CPT/HCPCS: 36415; 80048; 80076; 85025; 96374; 96375; 99283; J1100; J1170; J2270